=== PATIENT | male | born 1960 | race Caucasian/White ===

== ENCOUNTER 2021-05-07 02:33 | Day surgery (SDC) | payer OTHER, SELFPAY ==
[2021-05-07] VITALS (9 sets, daily range): BP systolic 110–132; BP diastolic 82–88; PULSE 61–70; RESP 14–19; TEMP 36.2–36.4; O2SAT 96–99; BMI 27.8
[2021-05-07 07:54] LABS: Basophils Absolute Auto 0.1 K/mm3 (0.0-0.1); Basophils Percent Auto 1.2 % (0.2-1.2); Eosinophils Absolute Auto 0.2 K/mm3 (0-0.3); Eosinophils Percent Auto 3.5 % (0-4.4); Hematocrit 46.6 % (42.0-52.0); Hemoglobin 15.6 g/dL (14.0-18.0); Immature Granulocyte Absolute 0.01 K/mm3 (0.00-0.031); Immature Granulocyte Percent A 0.2 % (0-0.5); Lymphocytes Absolute Auto 2.18 K/mm3 (0.9-3.2); Lymphocytes Percent Auto 36.5 % (18.3-44.2); Mean Corpuscular HGB Conc 33.5 g/dl (32-36); Mean Corpuscular Hemoglobin 29.9 pg (26-34); Mean Corpuscular Volume 89.3 fl (80-100); Monocytes Absolute Auto 0.6 K/mm3 (0.1-0.6); Monocytes Percent Auto 10.1 % (2.6-8.5); Neutrophils Absolute Auto 2.9 K/mm3 (1.3-6.7); Neutrophils Percent Auto 48.5 % (45.5-73.1); Platelet Count Result 249 k/mm3 (150-375); Red Blood Count 5.22 M/mm3 (4.6-6.20); Red Cell Distribution Width 12.2 % (11.5-14.5)
[2021-05-07 08:04] LABS: Anion Gap 8 mmol/L (8-16); Blood Urea Nitrogen 17 mg/dL (9-20); Calcium 9.3 mg/dL (8.4-10.2); Carbon Dioxide 26 mmol/L (22-30); Chloride 104 mmol/L (98-107); Estimated CRCL calculation 70 ml/min; Estimated Glomerular Filt Rate > 60; Glucose 102 mg/dL (65-110); Sodium 138 mmol/L (137-145)
--- NOTE | 2021-05-07 09:00 | P.SEDATION_ITS ---
Moderate Sedation Note-Pt Data Patient Data Allergies Allergy/AdvReac Type Severity Reaction Status Date / Time No Known Allergies Allergy Verified 05/06/21 15:12 Home Medications Medication Instructions Recorded Confirmed Type atorvastatin [Lipitor] 05/06/21 History Current Medications: Active Medications Sodium Chloride (Normal Saline Iv) 500 mls @ 100 mls/hr IV CONT .Q5H [facility] Sedation/Anesthesia: No previous sedation/anesthesia problems (including family history). [facility] Social History Social History Smoking status: Never smoker Alcohol intake: never Mod Sed Physical Exam Physical Exam Pre Procedural Exam: Normal: Appearance, Eyes, Ears, Nose, Neck, Throat, Airway, Lungs, Heart Size, Heart Rate, Heart Rhythm, Neuro Exam, Abdomen, Liver, Kidneys, Spleen, Breasts, Genitalia, Extremities and Skin Hours since solid foods: 8 Hours since liquid intake: 8 Mallampati Classification: class 1 Internal Medicine - PN: Obj Da Vital Signs Vital Signs: Vital Signs - 24 hr 05/07/21 07:50 Temperature 36.4 C Pulse Rate 70 Respiratory Rate 19 Blood Pressure 132/88 Pulse Oximetry 96 Meds/Results Medications: Active Medications Generic Name Dose Route Start Last Admin Trade Name Freq PRN Reason Stop Dose Admin Sodium Chloride 500 mls @ 100 mls/hr 05/07/21 07:30 Normal Saline Iv IV CONT .Q5H [facility] Labs CBC & Chem 7: 05/07/21 07:47 05/07/21 07:48 Labs: Laboratory Results - last 24 hr 05/07/21 05/07/21 07:47 07:48 WBC 6.0 RBC 5.22 Hgb 15.6 Hct 46.6 MCV 89.3 MCH 29.9 MCHC 33.5 RDW 12.2 Plt Count 249 MPV 10.0 Immature Gran % (Auto) 0.2 Neut % (Auto) 48.5 Lymph % (Auto) 36.5 Grayson % (Auto) 10.1 H Eos % (Auto) 3.5 Baso % (Auto) 1.2 Lymph # (Auto) 2.18 Grayson # (Auto) 0.6 Eos # (Auto) 0.2 Baso # (Auto) 0.1 Abs Immat Gran (auto) 0.01 Absolute Neuts (auto) 2.9 Absolute Nucleated RBC 0.0 Nucleated RBC % 0.0 Sodium 138 Potassium 4.0 Chloride 104 Carbon Dioxide 26 Anion Gap 8 BUN 17 Creatinine 1.20 Estim Creat Clear Calc 70 Estimated GFR > 60 Glucose 102 Calcium 9.3 ASA Classification/Sedation ASA Classification/Sedation ASA Class: I Emergent: No Risks: Risks, benefits and alternatives explained and patient/family accepted plan for sedation. Patient re-evaluated immediately prior to sedation.
--- NOTE | 2021-05-07 09:00 | PM.IMHP ---
H&P: HPI History of Present Illness Date/Time: 05/07/21 0900 Chief Complaint: abNormal EKG Narrative: this is 60-year-old patient with past history of hyperlipidemia was evaluated by Dr. wyatt for abnormal EKG shows anterior infarction. Risks and benefits of cardiac catheterization discussed with the patient agrees to proceed. Denies chest pain or shortness of breath. Review of Systems Review of Systems: All systems reviewed & are unremarkable except as noted in HPI and below Constitutional: Constitutional: Denies chills, Denies fatigue, Denies fever(s), Denies headache(s) and Denies snoring Eyes: Eyes: Denies eye discharge and Denies loss of vision ENT: Denies dizziness, Denies headache(s), Denies nasal discharge and Denies sore throat Cardiovascular: Cardiovascular: Reports as per HPI, Denies chest pain, Denies syncope, Denies rapid heart rate, Denies leg edema, Denies dyspnea, Denies dyspnea on exertion, Denies orthopnea and Denies paroxysmal nocturnal dyspnea Respiratory: Respiratory: Denies chest congestion, Denies cough, Denies dyspnea, Denies dyspnea on exertion, Denies snoring and Denies wheezing Gastrointestinal: Gastrointestinal: Denies abdominal pain, Denies diarrhea, Denies nausea and Denies vomiting Genitourinary: Genitourinary: Denies hematuria, Denies dysuria, Denies flank pain and Denies urinary frequency Musculoskeletal: Musculoskeletal: Denies myalgias, Denies arthralgias and Denies joint swelling Neurologic: Denies Abnormal speech present, Denies dizziness, Denies syncope, Denies headache(s), Denies focal weakness and Denies loss of vision Psychiatric: Psychiatric: Denies anxiety and Denies depression Endocrine: Endocrine: Denies cold intolerance, Denies fatigue and Denies heat intolerance Hematologic/Lymphatic: Hematologic/Lymphatic: Denies easy bleeding and Denies easy bruising Allergic/Immunologic: Allergic/Immunologic: Denies urticaria and Denies wheezing PMFSH Social History Social History Smoking status: Never smoker Alcohol intake: never Meds Home Medications and Allergies Home Medications Medication Instructions Recorded Confirmed Type atorvastatin [Lipitor] 05/06/21 History Allergies Allergy/AdvReac Type Severity Reaction Status Date / Time No Known Allergies Allergy Verified 05/06/21 15:12 Vital Signs Vital Signs - 24 hr 05/07/21 07:50 Temperature 36.4 C Pulse Rate 70 Respiratory Rate 19 Blood Pressure 132/88 Pulse Oximetry 96 Exam Const: General: cooperative, healthy appearing, comfortable, no acute distress and well developed Nutritional Appearance: well nourished Orientation/consciousness: patient oriented x3 HENMT: Head: normal to inspection, normocephalic and atraumatic Ears: hearing grossly normal bilaterally and external ears normal General nose exam: Normal external nose present and Normal nares present Face and sinus: normal facial exam and no erythema Mouth: Yes moist mucous membranes and No lip abnormal Throat: uvula midline Eyes: General: appearance normal, both eyes and all related structures Eyelids: eyelids normal Sclera: sclerae normal Neck: Neck: normal visual inspection and full ROM Thyroid: thyroid normal Carotids: no bruits Lymphatic: lymphedema not noted Chest: Chest palpation & inspection: normal inspection of the chest and normal palpation of entire chest wall Resp: Effort & Inspection: normal respiratory effort and not labored Auscultation: clear to auscultation bilaterally, no crackles, no rales and no wheezes Cardio: Jugular venous distension: no JVD Rate: regular rate Rhythm: regular rhythm Heart sounds: S1 normal heart sound present, S2 normal heart sound present, no click, no gallops, no murmurs and no rubs Bruits: no carotid bruits GI: Inspection: normal to inspection and non-distended GI Palp: No abdominal tenderness Auscultation: normal bowel sounds Rectal Exam: deferred : General: No CVA ten
--- NOTE | 2021-05-07 10:10 | WPDCARDPROC ---
Cardiac Cath Procedure Note Date of procedure:: 05/07/21 Performing physician:: Elizabeth Ndiaye MD date of service May 07, 2021 Indication:: abnormal EKG Brief clinical history:: this is 60-year-old patient with past history of hyperlipidemia was evaluated by Dr. Donnelly for abnormal EKG suggestion of anterior infarction. He was brought in here to rule out CAD Procedure Procedure performed:: 1-Moderate sedation that started at 9:43 a.m.and ended at 9:57 a.m. duration 14 minutes using 2mg of Versed and 50mcg fentanyl. The registered nurse was mirella grimes 2-Selective left and right coronary angiogram. 3-Left heart catheterization with measurement of LVEDP and measurement of gradient across aortic valve. 4- LV angiogram 4-Right common femoral arterial angiogram. 5-Deployment of 6 Greenlandic Angio-Seal. Sedation/Medication given:: Moderate sedation. Access site:: Right common femoral artery. Estimated blood loss:: 10cc Procedure note:: After informed consent patient was brought in to crown and bridge dental lab technician with the was draped and prepped in usual manner. Moderate sedation was given and the right groin was infiltrated using 1% lidocaine. Five Greenlandic sheath was obtained using micropuncture needle and the modified Seldinger technique. Selective left coronary angiogram was done using JL4 catheter with the tip of the catheter placed in the left main coronary artery. Selective right coronary angiogram was done using JR4 catheter with the tip of the catheter placed to the right coronary artery. After that 5 Greenlandic pigtail catheter was advanced across the aortic valve into the left ventricle with measurement of LVEDP and measurement of gradient across aortic valve. LV angiogram was done as well Right common femoral arterial angiogram was done. Findings:: 1- left coronary artery is a large artery that divides into large LAD, large circumflex artery and ramus intermedius. Left main has 10% ostial and proximally. 2- left anterior descending artery is a large artery that runs and wraps around the apex. Free of disease. Medium-sized diagonal branch at the mid portion of the LAD and free of disease. 3- Ramus intermedius large artery and free of disease. 3- leftcircumflex artery is a large artery Free of disease 4- right coronary artery is very large artery free of disease 5- LVEDP was 15 mm mercury and no gradient across aortic valve. 6- opening arterial pressure was 140/80 and closing pressure was 110/70 7- LV angiogram shows normal LV systolic function with no wall motion abnormalities. 8- right femoral artery angiogram shows no significant disease in the right common femoral artery. Conclusion:: 10% ostial proximal left main otherwise no CAD Assessment and Plan Additional Plan continue risk factor modification for CAD.
--- NOTE | 2021-05-07 13:45 | SUR.PHASEII ---
DISCHARGE INSTRUCTIONS GIVEN AND REVIEWED W/ PT. AND . QUESTIONS ANSWERED. VOICED UNDERSTANDING OF ALL INSTRUCTIONS. R. GROIN SITE SOFT, NONTENDER. NO BLEEDING OR HEMATOMA NOTED. DRESSING C/D/I. DISCHARGED HOME, OUT VIA WC TO 'S WAITING CAR WITH ALL PERSONAL BELONGINGS AND DISCHARGE PACKET. VOICES NO C/O. NO DISTRESS NOTED.
== END 2021-05-07 13:45 | disposition home or self-care (01) ==
PROVIDERS: Visit Provider Internal Medicine Cardiovascular Disease
PROC: 4A023N7 Measurement of Cardiac Sampling and Pressure, Left Heart, Percutaneous Approach (ICD-10-PCS; CPT 93452; principal; 2021-05-07 09:00)
DX: I25.10 Atherosclerotic heart disease of native coronary artery without angina pectoris (principal); E78.5 Hyperlipidemia, unspecified
CPT/HCPCS: 36415; 80048; 85025; 93458; C1760; C1887; C1894; G0269; J1644; J2250; J3010; J7040

== ENCOUNTER 2021-09-25 09:17 | Outpatient (CLI) | payer OTHER, SELFPAY ==
--- NOTE | ~2021-09-25 | XR_ITS ---
EXAMINATION: XR lumbar spine 2-3V EXAM DATE: 09/25/2021 10:39 INDICATION: Chronic low back pain. TECHNIQUE: Lumber spine frontal, lateral, lateral L5-S1 projections for interpretation. There is no prior study for comparison. FINDINGS: There is transitional lumbosacral segment which will be designated S1. Mild to moderate ant erior wedged appearance to the L1 vertebral body, mild loss of the L2, L3 and L5 vertebral body heigh ts at their superior endplates, but without acute fracture line identified. Probable chronic compress ion fractures. There is mild aortic arterial sclerosis. There is 3 mm retrolisthesis L4 on L5. The ve rtebral bodies are otherwise aligned. Mild to moderate loss of the disc height at L1-2, L2-3 and L4-5 . There is moderate mid and lower lumbar facet arthropathy. Sacrum, sacroiliac joints, sacral arcuate lines are intact. IMPRESSION: 1. Transitional lumbosacral segment designated S1. 2. Moderate lumbar facet arthropathy, mild to moderate disc disease. 3. Chronic appearing compression fractures. Reviewed, dictated and finalized at location A. E STRANDER
--- NOTE | ~2021-09-25 | XR_ITS ---
EXAMINATION: XR chest 2V EXAM DATE: 09/25/2021 11:00 INDICATION: Post COVID cough. TECHNIQUE: Frontal and lateral projections of the chest obtained and reviewed. There is no prior benito dy for comparison. FINDINGS: Some small scattered regions of airspace disease most conspicuous in the left midlung zone, could be infectious or postinfectious process. Recommend follow-up chest x-ray in 3 months. No pneum othorax or pleural effusion. Cardiomediastinal silhouette is normal. There are no osseous abnormaliti es identified. IMPRESSION: Some scattered small opacities probably postinfectious given history provided. Acute infe ctious process or cancer not excludable. Recommend 3 month follow-up chest x-ray. Reviewed, dictated and finalized at location A. R OUT IMPRESSION: Some scattered small opacities probably postinfectious given histor y provided. Acute infectious process or cancer not excludable. Recommend 3 mikayla h follow-up chest x-ray.
== END 2021-09-25 09:18 | disposition home or self-care (01) ==
LOC: CHSLAB 09:19
PROVIDERS: PCP Internal Medicine; Visit Provider Internal Medicine
DX: M54.50 Low back pain, unspecified (principal); R05.9 Cough, unspecified; U09.9 Post COVID-19 condition, unspecified
CPT/HCPCS: 71046; 72100

== ENCOUNTER 2023-03-22 15:03 | Outpatient (CLI) | payer BC, SELFPAY ==
--- NOTE | ~2023-03-22 | CT_ITS ---
Non-contrast CT scan of the Abdomen and Pelvis Clinical indication: Flank pain Technique: 2.5 mm axial scans were obtained through the abdomen and pelvis without intravenous or or al contrast. Dose reduction technique was used on this scan by utilizing automated exposure control a nd iterative reconstruction technique. The dose-length product (DLP) was 325.01 mGy-cm. COMPARISON: 09/12/2018 Findings: Images through the lung bases reveal discoid right basilar atelectasis. 4 mm distal left ureteral stone is present (axial image 170), with mild left hydroureteronephrosis to this level. There are additional bilateral nonobstructing renal stones, largest measuring 5 mm in th e right kidney. No right ureteral stone or right hydronephrosis. The liver, spleen, pancreas, and adrenals appear normal. Multiple gallstones are present. There are a therosclerotic calcifications of the aorta. There is no evidence of bowel obstruction. Images through the pelvis were performed. There is no evidence of ascites or lymphadenopathy. Urinary bladder unremarkable. Prostate gland is mildly enlarged. Impression: 4 mm distal left ureteral stone with mild left hydroureteronephrosis to this level. Additional bilateral nonobstructing renal stones, as detailed above. Reviewed, dictated and finalized at location M. Impression: 4 mm distal left ureteral stone with mild left hydroureteronephrosis to this le nataliia. Additional bilateral nonobstructing renal stones, as detailed above.
[2023-03-22 15:24] LABS: Basophils Absolute Auto 0.05 K/mm3 (0.00-0.10); Basophils Percent Auto 0.7 % (0.0-1.0); Eosinophils Absolute Auto 0.12 K/mm3 (0.02-0.50); Eosinophils Percent Auto 1.7 % (1.0-6.0); Hematocrit 48.9 % (40.0-54.0); Hemoglobin 16.3 g/dL (14.0-18.0); Immature Granulocyte Absolute 0.01 K/mm3 (0.00-0.00); Immature Granulocyte Percent A 0.1 % (0.0-0.0); Lymphocytes Absolute Auto 2.24 K/mm3 (1.10-4.50); Lymphocytes Percent Auto 32.6 % (18.0-42.0); Mean Corpuscular HGB Conc 33.3 g/dL (32.0-36.0); Mean Corpuscular Hemoglobin 30.3 pg (27.0-31.0); Mean Corpuscular Volume 90.9 fL (78.0-102.0); Mean Platelet Volume 10.2 fl (8.7-11.0); Monocytes Absolute Auto 0.47 K/mm3 (0.10-0.90); Monocytes Percent Auto 6.8 % (2.0-11.0); Neutrophils Percent Auto 58.1 % (50.0-70.0); Platelet Count Result 273 K/mm3 (150-420); Red Blood Count 5.38 M/mm3 (4.70-6.10); Red Cell Distribution Width 12.2 % (11.6-14.4); White Blood Count 6.9 K/mm3 (4.8-10.8)
[2023-03-22 15:25] LABS: Appearance Urine Clear (Clear); Bilirubin Urine Negative (Negative); Blood Urine Negative (Negative); Color Urine Light Yellow (Yellow); Glucose Urine UA Negative (Negative); Ketones Urine Negative (Negative); Leukocyte Esterase Ur Negative (Negative); Nitrate Urine Negative (Negative); Protein Urine Negative (Negative); Specific Grav Ur 1.025 (1.010-1.020); Urobilinogen Urine 0.2 mg/dL (0.2-1.0)
[2023-03-22 15:27] LABS: Add Urine Microscopic? NO
[2023-03-22 15:59] LABS: Alanine Aminotransferase 44 U/L (16-63); Alkaline Phosphatase 104 U/L (46-116); Anion Gap 7 mmol/L (8-16); Aspartate Amino Transferase 22 U/L (15-37); Bilirubin,Total 1.3 mg/dL (0.00-1.00); Blood Urea Nitrogen 19 mg/dL (7-18); Calcium 9.3 mg/dL (8.5-10.1); Carbon Dioxide 30 mmol/L (21-32); Chloride 104 mmol/L (98-108); Cholesterol 266 mg/dL (0-200); Creatine Kinase 65 U/L (39-308); Estimated Glomerular Filt Rate > 60; Ferritin 298 ng/mL (26-388); Free T3 2.99 pg/mL (2.18-3.98); Free T4 Free Thyroxine 0.95 ng/dL (0.76-1.46); Glucose 103 mg/dL (70-99); HDL Direct 50 mg/dL (40-60); Iron 95 ug/dL (65-175); LDL Cholesterol Calculated 169 mg/dL (<130); Osmolality Calculated 294 mOsm/kg (285-295); Potassium 4.3 mmol/L (3.5-5.1); Sodium 141 mmol/L (136-145); Thyroid Stimulating Hormone 2.24 uIU/mL (0.36-3.74); Total Protein 7.8 g/dL (6.4-8.2); Triglycerides 233 mg/dL (0-150); Uric Acid 7.4 mg/dL (3.5-7.2)
== END 2023-03-22 15:04 | disposition home or self-care (01) ==
PROVIDERS: PCP Internal Medicine; Visit Provider Internal Medicine
DX: E78.2 Mixed hyperlipidemia (principal); G25.81 Restless legs syndrome; R10.9 Unspecified abdominal pain; R82.90 Unspecified abnormal findings in urine; N21.1 Calculus in urethra; N13.30 Unspecified hydronephrosis; N20.0 Calculus of kidney
CPT/HCPCS: 36415; 74176; 80053; 80061; 81003; 82550; 82728; 83540; 84439; 84443; 84481; 84550; 85025; 87086

== ENCOUNTER 2023-05-05 01:08 | Day surgery (SDC) | payer BC, SELFPAY ==
[2023-04-13 08:23] VITALS: BMI 28.3
[2023-05-05 07:18] VITALS: BP 98/67; PULSE 90; RESP 18; TEMP 36.2; O2SAT 98
[2023-05-05] MEDS: LACTATED RINGERS 1,000 ML 150 ML IV CONT (07:30)
--- NOTE | 2023-05-05 08:07 | WPDANESEPPF ---
Anes - Initial Pre Proc Eval Procedure: Operation Date: 05/05/23 08:30 Proposed Procedures p Colonoscopy - Vito Bolaños DO Date/Time: 05/05/23 08:07 Surgeon: Vito Bolaños DO Pre Op Diagnosis: hx colon polyps Patient Data Age: 62 Gender: M Height: 1.88 m Weight: 96.3 kg Last Vital Signs Temp 97.1 F L 05/05/23 07:18 Pulse 90 05/05/23 07:18 Resp 18 05/05/23 07:18 BP 98/67 L 05/05/23 07:18 Pulse Ox 98 05/05/23 07:18 O2 Del Method Room Air 05/05/23 07:18 Allergies Allergy/AdvReac Type Severity Reaction Status Date / Time No Known Allergies Allergy Verified 05/05/23 07:16 Home Medications Medication Instructions Recorded Confirmed Type atorvastatin 20 mg tablet (Lipitor) 20 mg PO DAILY 05/06/21 04/28/23 History aspirin 81 mg tablet,delayed 81 mg PO DAILY 04/13/23 04/28/23 History release Patient hx anesthesia problems: none Family hx anesthesia problems: none Results Review: All pre-operative results and documents have been reviewed as part of the pre-operative evaluation. [facility] Social History Social History Smoking status: Never smoker Alcohol intake: never Substance use: never Substance use type: does not use Living arrangements: alone Spiritual care concerns: No Anes - Eval Final PreProcedure Day of Procedure 05/05/23 08:07 Patient weight: normal Heart: regular rate and rhythm Lungs: clear to auscultation Airway: Mallampati scale class II Neurological: alert and oriented Last oral intake: >/= 8 hours ASA classification: II Emergent: no Anesthetic plan: proceed Anesthesia type and monitoring: general GIVS and standard monitoring Results Review: All pre-operative results and documents have been reviewed as part of the pre-operative evaluation. Informed Consent: The patient's anesthetic plan and its attendant risks and benefits were discussed with the patient/family/POA. Questions were solicited and answers provided to the satisfaction of the patient/family/POA.
--- NOTE | 2023-05-05 08:30 | PM.IMHP ---
H&P: HPI History of Present Illness Date/Time: 05/05/23 08:30 Chief Complaint: history of colon polyps Narrative: this is a 62-year-old man who presents for colonoscopy. His last colonoscopy showed polyps. He denies any hematochezia or melena since then. He denies any family history of colon cancer. Review of Systems Review of Systems: All systems reviewed & are unremarkable except as noted in HPI and below Constitutional: Constitutional: Denies chills, Denies fever(s), Denies headache(s) and Denies weight loss Eyes: Eyes: Denies change in vision ENT: Denies dizziness, Denies headache(s), Denies neck mass and Denies throat swelling Cardiovascular: Cardiovascular: Denies chest pain, Denies lightheadedness and Denies dyspnea Respiratory: Respiratory: Denies cough, Denies dyspnea and Denies wheezing Gastrointestinal: Gastrointestinal: Denies abdominal pain, Denies change in bowel habits, Denies nausea and Denies vomiting Genitourinary: Genitourinary: Denies hematuria and Denies dysuria Musculoskeletal: Musculoskeletal: Reports as per HPI Integumentary/Breasts: Skin/Breast: Reports as per HPI Neurologic: Denies dizziness and Denies headache(s) Allergic/Immunologic: Allergic/Immunologic: Denies throat swelling and Denies wheezing PMFSH Social History Social History Smoking status: Never smoker Alcohol intake: never Substance use: never Substance use type: does not use Living arrangements: alone Spiritual care concerns: No Meds Home Medications and Allergies Home Medications Medication Instructions Recorded Confirmed Type atorvastatin 20 mg tablet (Lipitor) 20 mg PO DAILY 05/06/21 04/28/23 History aspirin 81 mg tablet,delayed 81 mg PO DAILY 04/13/23 04/28/23 History release Allergies Allergy/AdvReac Type Severity Reaction Status Date / Time No Known Allergies Allergy Verified 05/05/23 07:16 Vital Signs Vital Signs - 24 hr 05/05/23 07:18 Temperature 36.2 C L Pulse Rate 90 Respiratory Rate 18 Blood Pressure 98/67 L Pulse Oximetry 98 Oxygen Delivery Room Air Exam Const: General: no acute distress and alert Orientation/consciousness: patient oriented x3 HENMT: Head: normocephalic and atraumatic Ears: hearing grossly normal bilaterally Face/Nose/Sinus: Normal nares present Mouth: Yes Normal oral and palatal mucosa present Eyes: Periorbital: periorbital findings normal Sclera: sclerae normal EOM: EOMs intact bilaterally Neck: Neck: normal visual inspection, no lymphadenopathy and trachea midline Chest: Chest palpation & inspection: normal inspection of the chest Resp: Effort & Inspection: normal respiratory effort Auscultation: clear to auscultation bilaterally Cardio: Jugular venous distension: no JVD Rate: regular rate Rhythm: regular rhythm Heart sounds: S1 normal heart sound present and S2 normal heart sound present Peripheral pulses: Peripheral pulses 2+ throughout GI: Inspection: normal to inspection GI Palp: Yes Soft to palpation, No Tenderness to palpation present (GI), No Guarding due to palpation present (GI) and No Rebound tenderness present Percussion: Yes normal to percussion Auscultation: normal bowel sounds : General: Yes no CVA tenderness Back/Spine/Pelvis: Back: no CVA tenderness Neuro: General: patient oriented x3, no focal motor deficits and CN's II-XI intact bilaterally Cognition (Neuro): normal cognition Speech: normal speech Motor exam (neuro): 5/5 motor strength present throughout Extrem: General: capillary refill normal and no clubbing, cyanosis or edema Assessment and Plan Assessment and plan (1) History of colon polyps: Code(s): Z86.010 - Personal history of colonic polyps Status: Acute Assessment and Plan: I have recommended colonoscopy. I have discussed the procedure, risks, benefits, and alternatives with the patient. All questions answered. No changes since last seen in office.
[2023-05-05 09:05] VITALS: BP 90/57; PULSE 76; RESP 17; O2SAT 94
[2023-05-05 09:15] VITALS: BP 104/68; PULSE 85; RESP 18; O2SAT 95
[2023-05-05 09:25] VITALS: BP 114/80; PULSE 81; RESP 21; O2SAT 94
== END 2023-05-05 09:43 | disposition home or self-care (01) ==
PROVIDERS: PCP Internal Medicine; Visit Provider Surgery
PROC: 0DJD8ZZ Inspection of Lower Intestinal Tract, Via Natural or Artificial Opening Endoscopic (ICD-10-PCS; CPT 45378; principal; 2023-05-05 08:30)
DX: Z12.11 Encounter for screening for malignant neoplasm of colon (principal); K57.30 Diverticulosis of large intestine without perforation or abscess without bleeding; Z86.010 Personal history of colon polyps; Z79.82 Long term (current) use of aspirin
CPT/HCPCS: 45378; J2704; J7120

== ENCOUNTER 2024-07-20 07:15 | Outpatient (CLI) | payer BC, SELFPAY ==
--- NOTE | ~2024-07-20 | US_ITS ---
US right upper quadrant INDICATION: Right upper quadrant pain and nausea PROCEDURE: Realtime right upper abdominal ultrasound. COMPARISON: No prior studies for comparison. FINDINGS: The pancreas is normal without focal mass or pancreatic ductal dilation. Liver echotexture is normal without focal mass or intrahepatic biliary dilatation. There is normal directional flow i n the portal vein. There are gallstones and gallbladder sludge. There is gallbladder wall thickening. Common bile duct m easures 3 mm. No sonographic Sofia's sign. Incidental note is made of a right renal cyst measuring 3 cm. There is a nonobstructing right renal s tone measuring 6 mm. IMPRESSION: 1: Gallstones with gallbladder wall thickening. Consider cholecystitis in the appropriate clinical se tting. 2: Nonobstructing right nephrolithiasis. Reviewed, dictated and finalized at location B. IMPRESSION: 1: Gallstones with gallbladder wall thickening. Consider cholecystitis in the a ppropriate clinical setting. 2: Nonobstructing right nephrolithiasis.
== END 2024-07-20 07:16 | disposition home or self-care (01) ==
LOC: CHSIMG 07:17
PROVIDERS: PCP Internal Medicine; Visit Provider Internal Medicine
DX: R11.0 Nausea (principal); R10.13 Epigastric pain; K80.50 Calculus of bile duct without cholangitis or cholecystitis without obstruction; N20.0 Calculus of kidney
CPT/HCPCS: 76705